=== PATIENT | female | born 1960 | race Two or more races ===

== ENCOUNTER 2024-01-04 09:40 | Emergency (ER) | payer OTHER, SELFPAY ==
[2024-01-04 09:40] VITALS: BMI 26.9
[2024-01-04 09:49] VITALS: BP 152/96
[2024-01-04 10:00] VITALS: BP 158/105
[2024-01-04 11:58] VITALS: BP 156/91
--- NOTE | 2024-01-04 12:35 | ED.GENMED ---
History of Present Illness
General
Chief Complaint: Fall
Source: patient
Exam Limitations: none
Time Seen by Provider: 01/04/24 10:07
Nursing documentation reviewed up to this point in time: agreed with
History of Present Illness
History of Present Illness:
Patient is a 63-year-old female presents to the ER complaining of right rib/chest pain. She reports she tripped over uneven asphalt on Saturday 6 days ago landed on her right side. Since then she has had some pain in her anterior chest of her right
side. She denies any actual shortness of breath. She denies any abdominal pain. She denies any lightheadedness dizziness. She denies any back pain. She denies hitting her head she denies any neck pain. She denies any nausea vomiting.
Past History
Past History
ED Past Medical History: None
ED Past Surgical History: Gynecological (Hysterectomy) and Urological (Bladder sleeve)
Social History
Tobacco: Non-smoker
Alcohol: Occasional
Personal:
Living: with family
Employment: Employed
Family History
Family History: Other (Noncontributory)
Review of Systems
Review of Systems
Allergies reviewed?: Yes
All Other Systems: ROS reviewed and negative except as documented in HPI and ROS
Constitutional: Reports no symptoms
Respiratory: Reports other (Soreness to right chest); Denies trouble breathing
Cardiac: Reports no symptoms
ABD/GI: Reports no symptoms; Denies abdominal pain, nausea or vomiting
: Reports no symptoms
Musculoskeletal: Reports no symptoms; Denies neck pain
Skin: Reports no symptoms
Neurological: Denies headache
Psychiatric: Reports no symptoms
Phy Exam
General Physical Exam
General Presentation: well appearing
General age: appears stated age
General Skin: warm and dry
General Habitus: normal
General Mental: alert
General Hydration: appears well hydrated
Cardiovascular Exam
Cardiovascular Exam: regular rate/rhythm, no murmur and normal peripheral pulses
Pulmonary Exam
Pulmonary Exam: lungs clear, no respiratory distress, chest non tender and other (Normal inspection to chest no ecchymosis or abrasions nontender no crepitus)
Gastrointestinal Exam
Gastrointestinal Exam: non tender, soft and other (No right upper quadrant tenderness )
Neurological Exam
Neurological Exam: alert and oriented x3
Musculoskeletal Exam
Musculoskeletal Exam: full ROM
Skin Exam
Skin Exam: normal color and warm/dry
Psychiatric Exam
Psychiatric Exam: normal mood/affect
Course
Orders/Labs/Results
Orders:
Orders
01/04/24 09:54
CR Ribs-right 3 Vw W/pa Chest* Urgent
Comment: s/p fall
Reason For Exam: pain
01/04/24 11:02
CT Chest W/o Iv Contrast Urgent
Comment:
Reason For Exam: trauma right side pain
Vital Signs
Initial and Last Documented VS:
Initial Vital Signs
Temp Pulse Resp BP Pulse Ox
98.2 F 74 16 152/96 100
01/04/24 09:49 01/04/24 09:49 01/04/24 09:49 01/04/24 09:49 01/04/24 09:49
Last Documented Vital Signs
Temp Pulse Resp BP Pulse Ox
97.7 F 63 22 156/91 100
01/04/24 10:00 01/04/24 11:58 01/04/24 11:58 01/04/24 11:58 01/04/24 11:58
[employer] Clerk consulted with Physician
[employer] Clerk consulted with physician?: Yes
Name of Physician Consulted: Luz
MDM/Problems Addressed
Differential Diagnosis Includes:
Not limited to chest wall contusion, rib fracture less likely pneumothorax
MDM/Problems Addressed:
As documented patient is a 63-year female who fell on her right side on Saturday 6 days ago and has had pain since. She has no acute distress and denies any shortness of breath. She is not tachycardic not hypoxic with clear lungs no obvious
ecchymosis abrasions or crepitus on exam she is nontender on exam she complains of soreness within. This is a lot of times made worse with movement. Likely contusion rib x-ray was negative and so CAT scan was done and also negative. Patient
stable for discharge home. case d/c with ED physician.
*Radiology
Radiology exam reviewed: radiology read reviewed
*Pulse Oximetry
Patient hypoxic: no
*Critical Care Note
Total Time (30-74mins, 75-104mins- exclusive of procedures): Not Applicable
ED Attending Note
-
Portions of this chart may have been created with voice recognition software.� Occasional wrong word or��sound alike� substitutions may have occurred due to the inherent limitations of voice recognition software.
Discharge Plan
Departure
Patient Disposition: Home (Routine Discharge)
Date of Disposition: 01/04/24
Time of Disposition: 12:47
Patient with high blood pressure during this ER visit?: Yes
Condition: Good
Covid-19: Not Applicable
Discharge Problem:
Chest wall contusion
Instructions: Contusion (DC)
Prescriptions:
No Action
albuterol sulfate 18 GM HFA aerosol inhaler
2 puff IH QIDPRN PRN (Reason: cough/wheezing) Qty: 18 0RF
prednisone 10 MG tablet
10 mg PO .TAPER Qty: 30 0RF
Rx Instructions:
Take 40mg daily x3days, 30mg daily x3days,
20mg daily x3days, 10mg daily x3days.
Referrals:
Odalys Newton MD [Family Provider] -
Activity Restrictions/Additional Instructions:
As discussed you may continue to alternate between Tylenol Motrin for discomfort follow-up with family docto in the next several days and return if any worsening of symptoms
Interventions
Interventions:
*Risk Screen - Suicide Last Done: 01/04/24 09:49
*General Assessment Last Done: 01/04/24 10:27
*Neglect/Abuse Screening Last Done: 01/04/24 09:49
ED- Fall Risk Assessment Last Done: 01/04/24 10:40
*ED COVID-19 Vaccine History Last Done: 01/04/24 09:49
ED-Musculoskeletal Assessment Last Done: 01/04/24 10:26
ED- Neurological Assessment Last Done: 01/04/24 10:26
ED-Skin Assessment Last Done: 01/04/24 10:26
Discharge Date and Time
Print Language: PALESTINIAN
[2024-01-04 13:17] VITALS: BP 158/87
== END 2024-01-04 13:18 | disposition home or self-care (01) ==
LOC: EMR 09:40
PROVIDERS: EMERGENCY PHYSICIAN Emergency Medicine; FAMILY PHYSICIAN Family Medicine
DX: S20.219A Contusion of unspecified front wall of thorax, initial encounter (principal); W01.0XXA Fall on same level from slipping, tripping and stumbling without subsequent striking against object, initial encounter; R03.0 Elevated blood-pressure reading, without diagnosis of hypertension
CPT/HCPCS: 99283; 71101; 71250

== ENCOUNTER 2024-06-17 06:22 | Day surgery (SDC) | payer OTHER, SELFPAY | END 2024-06-17 10:15 | disposition home or self-care (01) | LOC: GI 06:22 | PROVIDERS: ATTENDING PHYSICIAN Internal Medicine | DX: Z12.11 Encounter for screening for malignant neoplasm of colon (principal); K55.20 Angiodysplasia of colon without hemorrhage; K63.5 Polyp of colon; K64.8 Other hemorrhoids; K57.30 Diverticulosis of large intestine without perforation or abscess without bleeding; Z86.0100 Personal history of colon polyps, unspecified; Z80.0 Family history of malignant neoplasm of digestive organs | CPT/HCPCS: 45380; 88305 ==